=== PATIENT | female | born 1950 ===

== ENCOUNTER 2016-11-21 13:07 | Emergency (ER) | payer MEDICARE, BC ==
[2016-11-21 13:33] VITALS: BP 173/90
--- NOTE | 2016-11-21 14:10 | UC ---
Skin Complaint HPI - HPI Summary HPI Summary: TICK FOUND UNDER LEFT ARM NEAR ARMPIT. MAY HAVE BEEN THERE FOR TWO DAYS. TOOK TICK OUT PARTIALLY, BUT HEAD MAY STILL BE IN AREA. SMALL AREA OF REDNESS AROUND SITE OF BITE. BP IN CLINICAL SETTING 173/90 , NORMALLY RUNS 120/80 BUT PATINET STATES THAT SHE GETS ANXIETY ATTACKS. NO HEADACHES. NO FEVER. NO BODY ACHES. NO CHEST PAIN. - History of Current Complaint Chief Complaint: UCSkin Time Seen by Provider: 11/21/16 13:39 Stated Complaint: TICK BITE Hx Obtained From: Patient Onset/Duration: Gradual Onset, Lasting Days, Still Present Skin Exposure Onset/Duration: Days Ago Onset Severity: Mild Current Severity: Mild Location: Discrete - LEFT AXILLA Character: Raised Aggravating: Nothing Alleviating: Nothing Associated Signs & Symptoms: Positive: Rash - SMALL ERRETHEMATOUS 1CM AREA SURROUNDING EMBEDDED TICK FRAGMENT. Negative: Fever, Chills, Throat Tightening , Tenderness, Red Streaks Related History: Insect Bite/Sting - Allergy/Home Medications Allergies/Adverse Reactions: Allergies Allergy/AdvReac Type Severity Reaction Status Date / Time Sulfa Antibiotics Allergy Unknown Verified 06/29/15 11:32 Reaction Details Erythromycin AdvReac GI Upset Verified 06/23/15 12:42 Review of Systems Constitutional: Negative Skin: Rash - TICK FRAGMENT EMBEDDED IN LEFT AXILLA Eyes: Negative ENT: Negative Respiratory: Negative Cardiovascular: Negative Gastrointestinal: Negative Genitourinary: Negative Motor: Negative Neurovascular: Negative Musculoskeletal: Negative Neurological: Negative Psychological: Negative All Other Systems Reviewed And Are Negative: Yes - Comments Additional Review of Systems Comments: Current medications reviewed and performance met. except as documented, all other systems reviewed and negative PMH/Surg Hx/FS Hx/Imm Hx Previously Healthy: Yes Endocrine History Of: Denies: Diabetes, Thyroid Disease Cardiovascular History Of: Denies: Cardiac Disorders, Hypertension Respiratory History Of: Denies: COPD, Asthma GI/ History Of: Denies: Ulcer Neurological History Of: Reports: Migraine - 2x/month - Surgical History Surgical History: Yes Surgery Procedure, Year, and Place: hysterectomy 2013. bartholin's cyst 1981. 1982. REPAIR R DETACHED RETINA 2015 [facility]. cataract right eye - Family History Known Family History: Negative: Blood Disorder - Social History Occupation: Employed Full-time Lives: With Family Alcohol Use: None Substance Use Type: None Smoking Status (MU): Former Smoker Type: Cigarettes Amount Used/How Often: quit 31 y/o Length of Time of Smoking/Using Tobacco: APPROX 20 YRS Have You Smoked in the Last Year: No When Did the Patient Quit Smoking/Using Tobacco: 1982 - Immunization History Most Recent Tetanus Shot: 2011 Physical Exam Triage Information Reviewed: Yes Appearance: Well-Appearing, No Pain Distress, Well-Nourished Vital Signs: Initial Vital Signs Temp 98.1 F 11/21/16 13:26 Pulse 72 11/21/16 13:26 Resp 16 11/21/16 13:26 BP 173/90 11/21/16 13:26 Pulse Ox 100 11/21/16 13:26 Vital Signs Reviewed: Yes Eye Exam: Normal ENT Exam: Normal ENT: Positive: Normal ENT inspection, Hearing grossly normal, Pharynx normal, TMs normal Dental Exam: Normal Neck exam: Normal Neck: Positive: Supple, Nontender, No Lymphadenopathy Respiratory Exam: Normal Respiratory: Positive: Chest non-tender, Lungs clear, Normal breath sounds, No respiratory distress, No accessory muscle use Cardiovascular Exam: Normal Cardiovascular: Positive: RRR, No Murmur, Pulses Normal, Brisk Capillary Refill Abdominal Exam: Normal Musculoskeletal Exam: Normal Neurological Exam: Normal Psychological Exam: Normal Skin: Positive: Other - 1CM ERRETHEMATOUS REGION SURROUNDING EMBEDDED TICK FRAGMENT IN LEFT AXILL; TICK FRAGMENT REMOVED USING SPLINTER FORCEPS; PATINET TOLERATED PROCEDURE WELL. Course/Dx - Differential Diagnoses - Skin Complaint Differential Diagnoses: Cellulitis, Eczema, Impetigo, MRSA, Poison [place], Tick Born Illness, Tinea - Diagnoses Provider Diagnoses: TICK BITE LEFT AXILLA. TICK FRAGMENT REMOVAL LEFT AXILLA Discharge - Discharge Plan Condition: Stable Disposition: HOME Prescriptions: DOXYcycline CAP(*) [DOXYcycline 100MG CAP(*)] 200 mg PO ONCE #2 cap Patient Education Materials: Tick Bite (ED), Hypertension (ED) Referrals: Asya Lindsay MD [Primary Care Provider] - Additional Instructions: PLEASE RECHECK YOU BLOOD PRESSURE OUTSIDE OF OFFICE SETTING ;AND FOLLOW UP WITH YOUR PRIMARY CARE PROVIDER FOR EVALUATION OF ELEVATED BLOOD PRESSURE. Images Front/Back of Body, Lg ([place]): 1 - TICK BITE HERE
== END 2016-11-21 14:33 | disposition home or self-care (01) ==
LOC: UCEAST 13:07
DX: S40.862A Insect bite (nonvenomous) of left upper arm, initial encounter (principal); W57.XXXA Bitten or stung by nonvenomous insect and other nonvenomous arthropods, initial encounter; Y93.9 Activity, unspecified; Y92.9 Unspecified place or not applicable; R21 Rash and other nonspecific skin eruption; G43.909 Migraine, unspecified, not intractable, without status migrainosus; Z90.710 Acquired absence of both cervix and uterus; Z98.41 Cataract extraction status, right eye; Z88.1 Allergy status to other antibiotic agents; Z88.2 Allergy status to sulfonamides; Z87.891 Personal history of nicotine dependence
CPT/HCPCS: 99212; G0463